=== PATIENT | female | born 1945 | race Caucasian/White ===

== ENCOUNTER → 2016-09-16 | Outpatient (CLI) | payer MEDICARE ==
[2016-09-16 11:51] LABS: EKG EKG PERFORMED
[2016-09-16 12:48] LABS: Anisocytosis Slight; CH 32.9; CHCM 35.4; HCT 42.7 % (34.0-46.0); HDW 3.14; MCH 32.9 pg (25.0-35.0); MCHC 35.2 g/dL (31.0-37.0); MCV 93.5 fL (80.0-100.0); Mean Platelet Volume 6.8; RBC 4.57 m/uL (3.80-5.40); WBC 7.2 k/uL (3.8-10.6)
[2016-09-16 12:52] LABS: INR 1.1 (<1.2)
[2016-09-16 12:53] LABS: Appearance,Urine Clear (Clear); Bilirubin,Urine Negative (Negative); Glucose,Urine (UA) Negative (Negative); Ketones,Urine Negative (Negative); Leukocyte Esterase,Urine Negative (Negative); Nitrite,Urine Negative (Negative); Protein,Urine Negative (Negative); Prothrombin Time 10.8 sec (9.0-12.0); Specific Gravity,Urine 1.021 (1.001-1.035); UA Billing (MACRO vs. MICRO) CHEM; Urobilinogen,Urine <2.0 mg/dL (<2.0)
[2016-09-16 13:03] LABS: ALT 29 U/L (9-52); AST 19 U/L (14-36); Alkaline Phosphatase 106 U/L (38-126); Anion Gap 9 mmol/L; Blood Urea Nitrogen 14 mg/dL (7-17); Calcium 9.4 mg/dL (8.4-10.2); Carbon Dioxide 27 mmol/L (22-30); Chloride 103 mmol/L (98-107); Glucose 69 mg/dL (74-99); Non-African American GFR(MDRD) >60 (>60 ml/min/1.73 sqM); Potassium 4.4 mmol/L (3.5-5.1); Sodium 139 mmol/L (137-145); Total Bilirubin 0.7 mg/dL (0.2-1.3); Total Protein 6.4 g/dL (6.3-8.2)
== END | disposition home or self-care (01) ==
LOC: LABPAT 11:35
PROVIDERS: ATTEND Orthopaedic Surgery
DX: Z01.810 Encounter for preprocedural cardiovascular examination (principal); Z79.01 Long term (current) use of anticoagulants; Z01.812 Encounter for preprocedural laboratory examination
CPT/HCPCS: 36415; 80053; 81003; 85027; 85610; 85730; 87070; 93005

== ENCOUNTER 2016-09-26 05:50 | Inpatient (IN) | payer BC, MEDICARE ==
[2016-09-19 11:28] VITALS: BMI 26.4
[~2016-09-26 05:50] MED LIST: ACETAMINOPHEN TAB 500 MG TAB PO ONE; DEXAMETHASONE SOD PHOSPHATE 10 MG/ML 1 ML VIAL IV ONE; LIDOCAINE 1% 20 ML VIAL (10MG/ML) FOR IV START INTRADERMA PRN; MELOXICAM 7.5 MG TAB PO ONE; MIDAZOLAM 2 MG/2 ML VIAL IV PRN; ONDANSETRON 4 MG/2 ML VIAL IVP ONE; SCOPOLAMINE 1.5MG/72HR PATCH TRANSDERM ONE; TRANEXAMIC ACID 1,000 MG in SODIUM CHLORIDE 0.9% 100 ML IVPB ONE; ceFAZolin 2 GM in SODIUM CHLORIDE 0.9% 100 ML IVPB ONE
[2016-09-26] MEDS ORDERED: ROPIVACAINE 246.25 MG, EPINEPHrine 0.5 MG, KETOROLAC 30 MG, cloNIDine HCL/PF 80 MCG, WA... MISCELLANE ONE ×5 (06:23)
[2016-09-26] MEDS: LACTATED RINGERS 1,000 ML IV SCH (06:52)
[2016-09-26] MEDS ORDERED: fentaNYL (PF) 50 MCG/ML 2 ML AMP ONE (07:27)
[2016-09-26] MEDS ORDERED: SODIUM CHLORIDE 0.9% 100 ML BAG ONE (07:27)
[2016-09-26] MEDS ORDERED: TRANEXAMIC ACID 1,000 MG/10 ML VIAL ONE (07:27)
[2016-09-26] MEDS ORDERED: ePHEDrine 50 MG/ML 1 ML AMP ONE (07:27)
[2016-09-26] MEDS ORDERED: SODIUM CHLORIDE 0.9% IRRIG 1,000 ML BTL IRRIGATION ONE (07:27)
[2016-09-26] MEDS ORDERED: LIDOCAINE 1% INJ 10MG/ML (20 ML MDV) ONE (07:27)
[2016-09-26] MEDS ORDERED: PHENYLEPHRINE-0.9% NACL SYG 1 MG/10 ML SYRINGE ONE (07:27)
[2016-09-26] MEDS ORDERED: HEPARIN SODIUM,PORCINE 10,000 UNIT/ML 1 ML VIAL ONE (07:27)
[2016-09-26] MEDS ORDERED: SUCCINYLCHOLINE CHLORIDE 100 MG/5 ML SYR IV ONE (07:27)
[2016-09-26] MEDS ORDERED: PROPOFOL 10 MG/ML 20 ML VIAL IV ONE (07:27)
[2016-09-26] MEDS ORDERED: MIDAZOLAM 2 MG/2 ML VIAL ONE (07:27)
[2016-09-26] MEDS ORDERED: ceFAZolin 3,000 MG in SODIUM CHLORIDE 0.9% IRRIGATIO 3,000 ML IRRIGATION ONE (07:45)
--- NOTE | 2016-09-26 09:06 | P.OP ---
Date of Procedure: 09/26/16 Preoperative Diagnosis: Severe osteoarthritis of the right hip Postoperative Diagnosis: Severe osteoarthritis of the right hip Procedure(s) Performed: Right total hip arthroplasty with a direct anterior approach Implants: Christianson [employer] nephew Polarstem size 5 standard [employer]hew R3, 3 hole acetabular shell, 48 mm [employer]hew reflection 6.5 mm cancellus screw, 20 mm 2 [employer] R3, XLPE 20 acetabular liner [employer]hew Oxinium femoral head 32 m, +0 All components were press-fit. The articulation is ceramic on polyethylene. Anesthesia: GETA Surgeon: Moo Reese Angle Shear Set Up Operator #1: Camryn Joyner Estimated Blood Loss (ml): 200 (60 mL returned with Cell Saver) Pathology: other (Femoral head) Condition: stable Disposition: PACU Indications for Procedure: After failure of conservative treatment we discussed the surgical and nonsurgical treatment options at length. Patient wishes to proceed with a total hip arthroplasty with a direct anterior approach. Complications specific to this procedure were discussed at length, including but not limited to infection, leg length discrepancy, dislocation, and nerve injury. Patient is aware of all these complications and informed consent was obtained Operative Findings: The operative findings are consistent with severe osteoarthritis of the right hip Description of Procedure: Patient was seen and evaluated in the preoperative area, consent was reviewed, and the surgical site was marked with a skin marker. Patient was then brought to the operating room and given prophylactic antibiotics intravenously. 1 g of Tranexamic acid was also given. A general anesthetic was administered by the anesthesia department. The patient was then placed on the Kasson table with the bony prominences well-padded. The hip area was then prepped and draped in usual sterile fashion. A universal timeout was then performed, which confirmed the patient's name, surgical site, ALLERGIES, and procedure being performed. Next the incision site was located at 1 cm distal and 1 cm lateral to the anterior superior iliac spine. The skin and subcutaneous tissues were sharply incised. Incision was carefully dissected down to the fascia overlying the tensor fascia nestor muscle. This fascia was then incised in line with the incision. Next, using blunt finger dissection, the tensor fascia nestor muscle was dissected off its investing fascia. The muscle was then carefully retracted laterally with a cobra retractor over the lateral neck of the femur. Next, the circumflex vessels were identified and cauterized using the AquaMantis device. The anterior hip capsule was then exposed. The capsule was then opened and an inverted T fashion. Cobra retractors were then placed intracapsularly. The proximal femur was then visualized. The femoral neck was then osteotomized appropriate level above the lesser trochanter. Small amount of traction was placed with the Kasson table. A small wedge of bone was then removed from the remaining femoral head. Next, using a corkscrew femoral head was easily removed from the acetabulum. On gross visual inspection, the femoral head had complete loss of articular cartilage in multiple periarticular osteophytes. Attention was then turned to the acetabulum. the acetabulum was exposed and any remaining labrum was excised. Sequential reaming of the acetabulum was performed using fluoroscopic guidance. When the appropriate size was reached, a trial was then placed. The position and fit of the trial was checked with fluoroscopy. The trial was then removed. Then, using fluoroscopic guidance, the final implant was impacted at 20 of anteversion and 40 of abduction, and fully seated in the acetabulum. 2 screws were then placed in the acetabulum. Again fluoroscopy was used to check position of the screws. Next, the liner was then impacted, with a 20 elevated liner located in the anterior superior quadrant. Component locking was confirmed. Attention was then directed to the femur. With the aid of the Kasson table, the femur was externally rotated to approximately 130, extended, and abducted under the opposite leg. A side hook was then placed under the proximal femur, and the side hook elevator was used to elevate the proximal femur. Retractors were then placed. A capsular release was performed, as well as a release of the conjoined tendon, which afforded excellent visualization of the proximal femur. Next, a box osteotome was used to lateralize the proximal femur. A hand filer balance wheel was then used to locate the femoral canal. Sequential broaching was then performed with appropriate size which afforded excellent fixation in the proximal femur. A trial was then placed with appropriate head and neck, and the hip was gently reduced with the aid of the Kasson table. Fluoroscopy was then used to check position of the components, as well as to ensure equal leg lengths. The hip was then gently dislocated and the trials were then removed. Final implants were then impacted and the hip was again reduced. Final fluoroscopic x-rays confirmed that the components were in anatomic position, as well as equal leg lengths. The hip was also taken through range of motion, and found to be stable. The hip was then copiously irrigated with antibiotic solution with pulsatile lavage. The hip was then irrigated with Irrisept solution. The soft tissues were then injected with a ropivacaine solution, which consisted of 246.25 mg of ropivacaine, 0.5 mg of epinephrine, 30 mg of Toradol, 80 g of clonidine, and 48.45 mL of sterile water, for a total of 100 mL of fluid injected. A second dose of 1 g of Tranexamic acid was also given. the fascia was then closed with 2-0 strata fix suture. The subcutaneous tissue was closed with 3-0 Vicryl. The subcuticular tissue was closed with 3-0 strata fix suture. The skin was then closed with Dermabond tape. The patient was then transferred to the recovery room in stable condition. The training assistant AMANDA Durant was required due to the complexity of surgery, and the need for skilled surgical endoscopist for positioning, draping, exposure, retraction, and closure of the wound.
[2016-09-26] MEDS ORDERED: HYDROmorphone 1 MG/ML 1 ML SYRINGE IVP PRN ×3 (09:30)
[2016-09-26] MEDS ORDERED: ONDANSETRON 4 MG/2 ML VIAL IVP PRN (09:30)
[2016-09-26] MEDS ORDERED: MAGNESIUM HYDROXIDE 2,400 MG/10 ML CUP PO PRN (09:30)
[2016-09-26] MEDS ORDERED: hydrOXYzine PAMOATE 25 MG CAP PO PRN (09:30)
[2016-09-26] MEDS ORDERED: traMADol 50 MG TAB PO PRN ×2 (09:30→09:35)
[2016-09-26] MEDS ORDERED: DIAZEPAM 5 MG TAB PO PRN ×2 (09:30)
[2016-09-26] MEDS ORDERED: NALOXONE 0.4 MG/ML 1 ML VIAL IV PRN (09:30)
--- NOTE | 2016-09-26 09:47 | XR ---
Right hip limited HISTORY: Hip replacement 2 intraoperative C-arm images document the procedure.
[2016-09-26] MEDS: HYDROmorphone 1 MG/ML 1 ML SYRINGE IVP PRN ×3 (09:54→10:11)
--- NOTE | 2016-09-26 10:14 | XR ---
EXAMINATION TYPE: XR Hip Limited RT DATE OF EXAM: 09/26/2016 CLINICAL HISTORY: Right hip pain and osteoarthritis status post total replacement. TECHNIQUE: Single AP portable view of right hip is obtained immediately postoperatively. COMPARISON: None. FINDINGS: Metallic hardware from total right hip arthroplasty is seen and appears satisfactory in ali gnment and position. There is evidence of recent surgery with subcutaneous gas noted laterally. IMPRESSION: Metallic hardware from total right hip arthroplasty is satisfactory in position.
[2016-09-26] MEDS: SODIUM CHLORIDE 0.9% 1,000 ML IV SCH (13:55)
[2016-09-26] MEDS ORDERED: NITROGLYCERIN SL TABS 0.4 MG TAB SUBLINGUAL PRN (14:17)
[2016-09-26] MEDS ORDERED: ALPRAZolam 0.5 MG TAB PO PRN (14:17)
[2016-09-26] MEDS ORDERED: FAMOTIDINE 20 MG TAB PO PRN (14:17)
--- NOTE | 2016-09-26 15:11 | P.CONS ---
History of Present Illness - Reason for Consult Consult date: 09/26/16 Medical management Requesting physician: Moo Reese - Chief Complaint Hip surgery - History of Present Illness This is a pleasant 70-year-old patient of Dr. Charles. Patient's undergone right total hip arthroplasty. Postprocedure sitting up on a chair comfortable. No chest pain no shortness no nausea vomiting. Just finished her lunch. Patient chronic stable medical conditions include coronary artery disease, GERD , hypertension, osteoarthritis, diverticulosis. Patient's is the bedside. Patient had a coronary bypass last year. No Rx symptoms otherwise. Past medical history: Coronary artery disease with history of bypass, GERD, hypertension, osteoarthritis, rheumatoid arthritis, non-Hodgkin's lymphoma treated previously , diverticulosis. Review of Systems GEN.: [None] EYES: [None] HEENT: [None] NECK: [None] RESPIRATORY: [None] CARDIOVASCULAR: [None] GASTROINTESTINAL: [None] GENITOURINARY: [None] MUSCULOSKELETAL: [Pain in other joints including the right knee] LYMPHATICS: [None] HEMATOLOGICAL: [None] PSYCHIATRY: [None] NEUROLOGICAL: [None] Past Medical History Past Medical History: Coronary Artery Disease (CAD), Cancer, Chest Pain / Angina , GERD/Reflux, Hypertension, Myocardial Infarction (AR), Rheumatoid Arthritis ( RA) Additional Past Medical History / Comment(s): AR X2 (1992,2011), IRREGULAR HEART BEAT., MAR 2015- H[place]INS NON LYMPHOMA (RECEIVED RITUXIN 2015), DIVERTICULOSIS., RECEIVING "CHICKEN FAT" INJECTIONS., USES CANE AND WALKER. Last Myocardial Infarction Date:: SEPTEMBER 2011 History of Any Multi-Drug Resistant Organisms: None Reported Past Surgical History: Coronary Bypass/CABG, Heart Catheterization, Heart Catheterization With Stent, Orthopedic Surgery Additional Past Surgical History / Comment(s): GERARDO CARPAL TUNNEL, GERARDO METATARSAL FOOT SURG, RIGHT BUNIONECTOMY, FX LEFT FOOT SURG., MULTIPLE HEART CATHS -STENTS X2 (1992 AND 2011), 8--15 total lt knee ., CABG - August 2015 Past Anesthesia/Blood Transfusion Reactions: No Reported Reaction Date of Last Stent Placement:: 09/2011 Past Psychological History: Anxiety Additional Psychological History / Comment(s): . Smoking Status: Former smoker Past Alcohol Use History: Daily Additional Past Alcohol Use History / Comment(s): DRINKS 1 GLASS WINE DAILY. STARTED SMOKING AT 16 YRS OLD AND QUIT 1992.SMOKED 2PPD, (SMOKED 31 YEARS) Past Drug Use History: None Reported Additional History: Drinks a glass of wine at night, smoked for 31 years 2 packs a day. In 1992. - Past Family History Mother Family Medical History: Rheumatoid Arthritis (RA) Additional Family Medical History / Comment(s): . 2014 -"old age "- RA and "4 leaky heart valves" Father Additional Family Medical History / Comment(s): dad from brain aneurysm when pt was aGE 1 Medications and Allergies Home Medications Medication Instructions Recorded Confirmed Type Aspirin EC [Ecotrin Low Dose] 81 mg PO DAILY 09/29/14 09/26/16 History Carvedilol [Coreg] 25 mg PO BID 09/29/14 09/26/16 History Nitroglycerin Sl Tabs [Nitrostat] 0.4 mg SUBLINGUAL Q5M PRN 09/29/14 09/26/16 History Ranitidine HCl [Zantac] 150 mg PO BID PRN 09/29/14 09/26/16 History traMADol HCl [Ultram] 100 mg PO Q6HR PRN 09/29/14 09/26/16 History ALPRAZolam [Xanax] 0.5 mg PO BID PRN 09/19/16 09/26/16 History Fish Oil/Dha/Epa [Fish Oil 1,200 1 cap PO BID 09/19/16 09/26/16 History mg Fish Oil] Polyethylene Glycol 3350 [Miralax] 17 gm PO DAILY 09/19/16 09/26/16 History Pravastatin Sodium [Pravachol] 40 mg PO HS 09/19/16 09/26/16 History Allergies Allergy/AdvReac Type Severity Reaction Status Date / Time codeine Allergy Unknown Passed Out Verified 09/26/16 06:23 niacin Allergy Unknown Tingling Verified 09/26/16 06:23 [From Niaspan of lips Extended-Release] and face. Sulfa (Sulfonamide Allergy Unknown Swelling Verified 09/26/16 06:23 Antibiotics) of Throat acetaminophen [From [place]] Allergy Hallucinati Verified 09/26/16 06:23 ons hydrocodone [From [place]] Allergy Hallucinati Verified 09/26/16 06:23 ons leflunomide [From Arava] Allergy Hallucinati Verified 09/26/16 06:23 ons prednisone Allergy Hallucinati Verified 09/26/16 06:23 ons Physical Exam Vitals: Vital Signs Temp Pulse Pulse Resp BP BP Pulse Ox 09/26/16 14:28 97.6 F 70 18 116/76 98 09/26/16 12:45 65 111/72 09/26/16 12:30 62 134/72 09/26/16 12:15 68 131/73 09/26/16 12:00 66 111/72 09/26/16 11:45 66 134/73 09/26/16 11:30 64 131/73 09/26/16 11:15 67 140/70 09/26/16 11:00 68 157/81 09/26/16 10:45 97.1 F L 80 17 150/77 97 09/26/16 10:17 80 18 137/63 100 09/26/16 10:01 67 16 153/78 100 09/26/16 09:47 80 18 157/74 100 09/26/16 09:32 97.2 F L 69 16 151/72 94 L 09/26/16 06:30 97.4 F L 59 L 16 176/77 95 Intake and Output Patient Weight 09/27/16 06:59 Weight 67.585 kg VITAL SIGNS: [Reviewed. BMI noted] GENERAL: [Average built, sitting up on chair, comfortable]. EYES: [Pupils equal. Conjunctiva john]l. HEENT: [External appearance of nose and ears normal, oral cavity grossly normal] . NECK: [JVD not raised; masses not palpable]. HEART: [First and second heart sounds are normal; no edema]. LUNGS:[ Respiratory rate normal; clear to auscultation]. ABDOMEN: [Soft, nontender, liver spleen not palpable, no masses palpable]. LYMPHATICS: [No lymph nodes palpable in the axilla and neck]. PSYCH: [Alert and oriented x3; mood and affect john]l. NEUROLOGICAL: [Cranial nerves grossly intact; no facial asymmetry, power and sensation grossly intact] MUSCULOSKELETAL: Dressing over the right hip site, evidence of osteoarthritis especially in the hands and right knee. Results Results: No current labs Labs from 09/16/16 showed a hemoglobin of 15 with impression of 4.4 BUN/ creatinine to be normal Assessment and Plan Plan: Assessment: -Right total hip arthroplasty -Coronary artery disease with a prior history of CABG -GERD -Essential hypertension -Bilateral chronic rheumatoid arthritis -Chronic colonic diverticulosis -Primary osteoarthritis of multiple joints including the right knee Plan: Home medications are to be resumed. Care was discussed with the patient has been at the bedside. Patient is on aspirin 325 mg twice a day per Dr. Reese. Will follow the patient closely. Thank you Dr. Reese follow the patient with you.
[2016-09-26] MEDS: ceFAZolin 2 GM in SODIUM CHLORIDE 0.9% 100 ML IVPB SCH (16:27)
[2016-09-26] MEDS ORDERED: CARVEDILOL 12.5 MG TAB PO SCH (17:30)
[2016-09-26 19:47] VITALS: RESP 16
[2016-09-26] MEDS: traMADol 50 MG TAB PO PRN (20:43)
[2016-09-26] MEDS: ASPIRIN 325 MG TAB PO SCH (20:44)
[2016-09-26] MEDS: CARVEDILOL 12.5 MG TAB PO SCH (20:45)
[2016-09-26] MEDS ORDERED: SENNOSIDES-DOCUSATE SODIUM 1 EACH TAB PO SCH (21:00)
[2016-09-26] MEDS ORDERED: PRAVASTATIN SODIUM 40 MG TAB PO SCH (21:00)
[2016-09-27] MEDS: ceFAZolin 2 GM in SODIUM CHLORIDE 0.9% 100 ML IVPB SCH (00:10)
[2016-09-27] MEDS: traMADol 50 MG TAB PO PRN ×2 (02:11→08:18)
[2016-09-27] MEDS: SODIUM CHLORIDE 0.9% 1,000 ML IV SCH (03:16)
[2016-09-27] MEDS: LACTATED RINGERS 1,000 ML IV SCH (04:52)
[2016-09-27 07:35] VITALS: BP 142/66; PULSE 73; TEMP 97.2
[2016-09-27 07:45] LABS: Basophils % (A) 0 %; CH 32.3; CHCM 34.6; Eosinophils % (A) 0 %; HCT 31.6 % (34.0-46.0); HDW 3.22; Luc # (Auto) 0.18; Luc % (Auto) 2; Lymphocytes % (A) 12 %; MCH 31.9 pg (25.0-35.0); MCHC 33.9 g/dL (31.0-37.0); MCV 94.1 fL (80.0-100.0); Mean Platelet Volume 6.7; Monocytes # (A) 0.8 k/uL (0-1.0); Monocytes % (A) 9 %; Neutrophils # (A) 6.9 k/uL (1.3-7.7); Neutrophils % (A) 77 %; RBC 3.36 m/uL (3.80-5.40); RDW 15.3 % (11.5-15.5); WBC 8.9 k/uL (3.8-10.6); WBC (Perox) 9.45
[2016-09-27 07:50] LABS: HGB 10.7 gm/dL (11.4-16.0)
[2016-09-27] MEDS: ASPIRIN 325 MG TAB PO SCH (08:18)
[2016-09-27] MEDS: CARVEDILOL 12.5 MG TAB PO SCH (08:19)
[2016-09-27] MEDS ORDERED: POLYETHYLENE GLYCOL 3350 17 GM POWD.PACK PO SCH (09:00)
[2016-09-27] MEDS ORDERED: MELOXICAM 7.5 MG TAB PO SCH (09:00)
--- NOTE | 2016-09-27 10:04 | P.DS ---
Providers Date of admission: 09/26/16 05:50 Expected date of discharge: 09/27/16 Attending physician: Moo Reese Consults: 09/26/16 09:30 Consult Physician Routine Consulting Provider: Kenn Morrison Consult Reason/Comments: medical management Do you want consulting provider notified?: Yes Primary care physician: [facility] Course: This is a 70-year-old female with known history of degenerative arthritis of the right hip. The patient presents for evaluation. After discussion and consideration patient elects to proceed with total hip arthroplasty. The patient is seen preoperatively by Dr. Reese and cleared for surgery. Patient is admitted to [facility] on 09/26/2016 for total hip arthroplasty. The procedures performed without complication or sequelae. The patient is doing well postoperatively. Labs and vital signs are stable on day of discharge. On day of discharge patient's hip incision is healing well. There is minimal erythema. There is no drainage noted at this time. There is minimal soft tissue swelling to the hip and thigh. Patient has full foot and ankle motion without difficulty or pain. Neurovascular status to the right lower extremity is intact. Patient is discharged home in good condition.Please see med rec for accurate list of home medications. Plan - Discharge Summary New Discharge Prescriptions: New Aspirin 325 mg PO BID #60 tab Sennosides-Docusate Sodium [Senokot-S] 1 tab PO BID #60 tablet traMADol HCl [Ultram] 1 - 2 tab PO Q6H PRN #90 tab PRN Reason: Pain No Action traMADol HCl [Ultram] 100 mg PO Q6HR PRN PRN Reason: Pain Ranitidine HCl [Zantac] 150 mg PO BID PRN PRN Reason: Heartburn Nitroglycerin Sl Tabs [Nitrostat] 0.4 mg SUBLINGUAL Q5M PRN PRN Reason: Chest Pain Carvedilol [Coreg] 25 mg PO BID Aspirin EC [Ecotrin Low Dose] 81 mg PO DAILY Pravastatin Sodium [Pravachol] 40 mg PO HS Fish Oil/Dha/Epa [Fish Oil 1,200 mg Fish Oil] 1 cap PO BID Polyethylene Glycol 3350 [Miralax] 17 gm PO DAILY ALPRAZolam [Xanax] 0.5 mg PO BID PRN PRN Reason: Anxiety Discharge Medication List Aspirin EC [Ecotrin Low Dose] 81 mg PO DAILY 09/29/14 [History] Carvedilol [Coreg] 25 mg PO BID 09/29/14 [History] Nitroglycerin Sl Tabs [Nitrostat] 0.4 mg SUBLINGUAL Q5M PRN 09/29/14 [History] Ranitidine HCl [Zantac] 150 mg PO BID PRN 09/29/14 [History] traMADol HCl [Ultram] 100 mg PO Q6HR PRN 09/29/14 [History] ALPRAZolam [Xanax] 0.5 mg PO BID PRN 09/19/16 [History] Fish Oil/Dha/Epa [Fish Oil 1,200 mg Fish Oil] 1 cap PO BID 09/19/16 [History] Polyethylene Glycol 3350 [Miralax] 17 gm PO DAILY 09/19/16 [History] Pravastatin Sodium [Pravachol] 40 mg PO HS 09/19/16 [History] Aspirin 325 mg PO BID #60 tab 09/27/16 [Rx] Sennosides-Docusate Sodium [Senokot-S] 1 tab PO BID #60 tablet 09/27/16 [Rx] traMADol HCl [Ultram] 1 - 2 tab PO Q6H PRN #90 tab 09/27/16 [Rx] Follow up Appointment(s)/Referral(s): Moo Reese DO [Doctor of Osteopathic Medicine] - 2 Weeks Activity/Diet/Wound Care/Special Instructions: Weightbearing as tolerated with walker May shower after 2 days if no drainage from the incision Follow-up with [facility] in 2 weeks with any questions or concerns Discharge Disposition: HOME WITH HOME HEALTH SERVICES
--- NOTE | 2016-09-27 13:33 | P.PN ---
Progress Note - Text Date of service: 09/27/2016 Presenting complaint: Right hip surgery Interval history: This is a patient status post right hip surgery. Patient's controlled. No chest pain or shortness of breath. Did tolerate her diet. Did work with therapy. Feeling well. Review of systems: Was done for constitutional, cardiovascular, GI, pulmonary. Musculoskeletal, relevant finding as above Current medications are reviewed On examination VITAL SIGNS: [97.2, 73, 16, 142/66, pulse ox 100% room air] GENERAL: [ sitting up on chair, comfortable]. EYES: [Pupils equal. Conjunctiva john]l. NECK: [JVD not raised; masses not palpable]. HEART: [First and second heart sounds are normal; no edema]. LUNGS:[ Respiratory rate normal; clear to auscultation]. ABDOMEN: [Soft, nontender, liver spleen not palpable, no masses palpable]. PSYCH: [Alert and oriented x3; mood and affect john]l. MUSCULOSKELETAL: Dressing over the right hip site, evidence of osteoarthritis especially in the hands and right knee. Labs: 10.7 Assessment: -Right total hip arthroplasty -Coronary artery disease with a prior history of CABG -GERD -Essential hypertension -Bilateral chronic rheumatoid arthritis -Chronic colonic diverticulosis -Primary osteoarthritis of multiple joints including the right knee -Acute blood loss anemia as expected from surgery Plan: Continue current medication treatment plan. Care was discussed with the patient. Follow-up with family doctor next week. Anticoagulation per Dr. Reese. Thank you Dr. Reese
== END 2016-09-27 11:12 | disposition home health service (06) | DRG 470 ==
LOC: 2ORMAIN 05:50 → 3SUR 09:27
PROVIDERS: ADMIT Orthopaedic Surgery; ATTEND Orthopaedic Surgery
PROC: 0SR904A Replacement of Right Hip Joint with Ceramic on Polyethylene Synthetic Substitute, Uncemented, Open Approach (ICD-10-PCS; principal; 2016-09-26 07:30)
DX: M16.11 Unilateral primary osteoarthritis, right hip (principal); M06.9 Rheumatoid arthritis, unspecified; D62 Acute posthemorrhagic anemia; I10 Essential (primary) hypertension; K57.30 Diverticulosis of large intestine without perforation or abscess without bleeding; I25.10 Atherosclerotic heart disease of native coronary artery without angina pectoris; K21.9 Gastro-esophageal reflux disease without esophagitis; Z88.2 Allergy status to sulfonamides; Z79.82 Long term (current) use of aspirin; Z79.899 Other long term (current) drug therapy; Z88.5 Allergy status to narcotic agent; Z95.5 Presence of coronary angioplasty implant and graft; Z95.1 Presence of aortocoronary bypass graft; Z87.891 Personal history of nicotine dependence; I25.2 Old myocardial infarction; Z85.72 Personal history of non-Hodgkin lymphomas
CPT/HCPCS: 73501; 85025; 86850; 86900; 86901; 88300

== ENCOUNTER → 2017-08-04 | Outpatient (CLI) | payer MEDICARE ==
[2017-08-04 12:41] LABS: HCT 45.6 % (34.0-46.0); HGB 16.3 gm/dL (11.4-16.0); MCH 32.9 pg (25.0-35.0); MCHC 35.7 g/dL (31.0-37.0); MCV 92.4 fL (80.0-100.0); Mean Platelet Volume 6.5; Platelet Count 244 k/uL (150-450); RBC 4.94 m/uL (3.80-5.40); RDW 13.3 % (11.5-15.5); WBC 5.9 k/uL (3.8-10.6)
[2017-08-04 12:46] LABS: INR 1.1 (<1.2); Partial Thromboplastin Time 23.9 sec (22.0-30.0); Prothrombin Time 10.7 sec (9.0-12.0)
[2017-08-04 12:54] LABS: ALT 32 U/L (9-52); AST 22 U/L (14-36); Albumin 4.1 g/dL (3.5-5.0); Alkaline Phosphatase 78 U/L (38-126); Anion Gap 12 mmol/L; Blood Urea Nitrogen 16 mg/dL (7-17); Calcium 9.6 mg/dL (8.4-10.2); Carbon Dioxide 25 mmol/L (22-30); Chloride 106 mmol/L (98-107); Glucose 73 mg/dL (74-99); Potassium 4.4 mmol/L (3.5-5.1); Sodium 143 mmol/L (137-145); Total Bilirubin 0.5 mg/dL (0.2-1.3); Total Protein 6.2 g/dL (6.3-8.2)
[2017-08-04 12:55] LABS: Appearance,Urine Clear (Clear); Bilirubin,Urine Negative (Negative); Blood,Urine Negative (Negative); Color,Urine Light Yellow; Glucose,Urine (UA) Negative (Negative); Ketones,Urine Negative (Negative); Leukocyte Esterase,Urine Negative (Negative); Nitrite,Urine Negative (Negative); PH, Urine 6.5 (5.0-8.0); Protein,Urine Negative (Negative); Specific Gravity,Urine 1.004 (1.001-1.035); Urobilinogen,Urine <2.0 mg/dL (<2.0)
== END | disposition home or self-care (01) ==
LOC: LABPAT 11:59
PROVIDERS: ATTEND Orthopaedic Surgery
DX: Z01.812 Encounter for preprocedural laboratory examination (principal); Z51.81 Encounter for therapeutic drug level monitoring; Z79.01 Long term (current) use of anticoagulants
CPT/HCPCS: 36415; 80053; 81003; 85027; 85610; 85730; 87070

== ENCOUNTER 2017-08-15 07:30 | Inpatient (IN) | payer MEDICARE ==
[2017-08-07 16:10] VITALS: BMI 31.8
[~2017-08-15 07:30] MED LIST changes: -DEXAMETHASONE SOD PHOSPHATE 10 MG/ML 1 ML VIAL IV ONE; -MELOXICAM 7.5 MG TAB PO ONE; -ONDANSETRON 4 MG/2 ML VIAL IVP ONE; +ROPIVACAINE 246.25 MG, EPINEPHrine 0.5 MG, KETOROLAC 30 MG, cloNIDine HCL/PF 80 MCG, WA... MISCELLANE ONE; -TRANEXAMIC ACID 1,000 MG in SODIUM CHLORIDE 0.9% 100 ML IVPB ONE; +TRANEXAMIC ACID 1,000 MG in SODIUM CHLORIDE 0.9% 50 ML IVPB ONE; -ceFAZolin 2 GM in SODIUM CHLORIDE 0.9% 100 ML IVPB ONE; +ceFAZolin IN SWFI 2 GM/20 ML SYRINGE IVP ONE; +fentaNYL (PF) 50 MCG/ML 2 ML AMP IV PRN
[2017-08-15] MEDS: MELOXICAM 7.5 MG TAB PO ONE ×2 (08:13→12:15)
[2017-08-15] MEDS: LACTATED RINGERS 1,000 ML IV SCH ×2 (08:21→13:52)
[2017-08-15] MEDS: DEXAMETHASONE SOD PHOSPHATE 10 MG/ML 1 ML VIAL IV ONE ×2 (08:30→12:14)
[2017-08-15] MEDS ORDERED: HYDROmorphone 0.5 MG/0.5 ML SYRINGE IVP PRN ×3 (09:26)
[2017-08-15] MEDS ORDERED: hydrOXYzine PAMOATE 25 MG CAP PO PRN (09:26)
[2017-08-15] MEDS ORDERED: HYDROcodone/APAP 5-325MG 1 EACH TAB PO PRN ×2 (09:26)
[2017-08-15] MEDS ORDERED: ONDANSETRON 4 MG/2 ML VIAL IVP PRN (09:26)
[2017-08-15] MEDS ORDERED: NALOXONE 0.4 MG/ML 1 ML VIAL IV PRN (09:26)
[2017-08-15] MEDS ORDERED: MAGNESIUM HYDROXIDE 2,400 MG/10 ML CUP PO PRN (09:26)
[2017-08-15] MEDS ORDERED: DIAZEPAM 5 MG TAB PO PRN ×2 (09:26)
[2017-08-15] MEDS ORDERED: TRANEXAMIC ACID 1,000 MG/10 ML VIAL ONE (09:28)
[2017-08-15] MEDS ORDERED: ROCURONIUM BROMIDE 10 MG/ML 10 ML VIAL IV ONE (09:28)
[2017-08-15] MEDS ORDERED: SUCCINYLCHOLINE CHLORIDE 100 MG/5 ML SYR IV ONE (09:28)
[2017-08-15] MEDS ORDERED: LIDOCAINE 1% INJ 10MG/ML (20 ML MDV) ONE (09:28)
[2017-08-15] MEDS ORDERED: LACTATED RINGERS 1,000 ML BAG IV ONE (09:28)
[2017-08-15] MEDS ORDERED: PHENYLEPHRINE-0.9% NACL SYG 1 MG/10 ML SYRINGE ONE (09:28)
[2017-08-15] MEDS ORDERED: MIDAZOLAM 2 MG/2 ML VIAL ONE (09:28)
[2017-08-15] MEDS ORDERED: NEOSTIGMINE 1 MG/ML 10 ML VIAL ONE (09:28)
[2017-08-15] MEDS ORDERED: GLYCOPYRROLATE 0.2 MG/ML 2 ML VIAL ONE (09:28)
[2017-08-15] MEDS ORDERED: fentaNYL (PF) 50 MCG/ML 2 ML AMP ONE (09:28)
[2017-08-15] MEDS ORDERED: SODIUM CHLORIDE 0.9% 100 ML BAG ONE (09:28)
[2017-08-15] MEDS ORDERED: HEPARIN SODIUM,PORCINE 10,000 UNIT/ML 1 ML VIAL ONE (09:28)
[2017-08-15] MEDS ORDERED: PROPOFOL 10 MG/ML 20 ML VIAL IV ONE (09:28)
[2017-08-15] MEDS ORDERED: ceFAZolin 3,000 MG in SODIUM CHLORIDE 0.9% IRRIGATIO 3,000 ML IRRIGATION ONE (10:04)
--- NOTE | 2017-08-15 11:08 | FL ---
EXAMINATION TYPE: FL guidance operating room DATE OF EXAM: 08/15/2017 HISTORY: Flouroscopy time Less than 60 seconds of fluoroscopy provided. IMPRESSION: 1. Fluoroscopy time.
--- NOTE | 2017-08-15 11:13 | XR ---
EXAMINATION TYPE: XR Hip Limited LT DATE OF EXAM: 08/15/2017 COMPARISON: NONE HISTORY: Postop TECHNIQUE: One view submitted. FINDINGS: There is postsurgical change in near anatomic alignment. There is soft tissue edema and emphysema. IMPRESSION: 1. Postoperative change. Appears in near-anatomic alignment.
[2017-08-15] MEDS ORDERED: LACTATED RINGERS 1,000 ML IV ONE ×2 (11:21)
--- NOTE | 2017-08-15 11:51 | XR ---
EXAMINATION TYPE: XR Hip Limited LT DATE OF EXAM: 08/15/2017 CLINICAL HISTORY: Left hip pain and osteoarthritis. TECHNIQUE: Single AP portable view of left hip is obtained immediately postoperatively. COMPARISON: None. FINDINGS: Metallic hardware from left hip arthroplasty is seen and appears satisfactory in alignment and position. There is evidence of recent surgery with subcutaneous gas noted laterally. IMPRESSION: Metallic hardware from left hip arthroplasty is satisfactory in position.
[2017-08-15 12:18] VITALS: RESP 16
--- NOTE | 2017-08-15 12:20 | P.OP ---
Date of Procedure: 08/15/17 Preoperative Diagnosis: Severe osteoarthritis left hip Postoperative Diagnosis: Severe osteoarthritis left hip Procedure(s) Performed: Left total hip arthroplasty with a direct anterior approach Implants: Christianson and nephew Polarstem size 6 standard [employer]on [employer]hew R3, 3 hole acetabular shell, 52 mm [employer]hew reflection 6.5 mm cancellus screw, 20 mm 2 [employer]hew R3, XLPE 20 acetabular liner [employer]hew Oxinium femoral head 36 m, +0 All components were press-fit. The articulation is Oxinium on polyethylene. Anesthesia: GETA Surgeon: Moo Reese Epidemiologist #1: Camryn Joyner Estimated Blood Loss (ml): 400 (203 mL returned with Cell Saver) Pathology: other (Femoral head) Condition: stable Disposition: PACU Indications for Procedure: After failure of conservative treatment we discussed the surgical and nonsurgical treatment options at length. Patient wishes to proceed with a total hip arthroplasty with a direct anterior approach. Complications specific to this procedure were discussed at length, including but not limited to infection, leg length discrepancy, dislocation, and nerve injury. Patient is aware of all these complications and informed consent was obtained Operative Findings: The operative findings are consistent with severe osteoarthritis of the left hip Description of Procedure: Patient was seen and evaluated in the preoperative area, consent was reviewed, and the surgical site was marked with a skin marker. Patient was then brought to the operating room and given prophylactic antibiotics intravenously. 1 g of Tranexamic acid was also given. A general anesthetic was administered by the anesthesia department. The patient was then placed on the Mayetta table with the bony prominences well-padded. The hip area was then prepped and draped in usual sterile fashion. A universal timeout was then performed, which confirmed the patient's name, surgical site, ALLERGIES, and procedure being performed. Next the incision site was located at 1 cm distal and 1 cm lateral to the anterior superior iliac spine. The skin and subcutaneous tissues were sharply incised. Incision was carefully dissected down to the fascia overlying the tensor fascia nestor muscle. This fascia was then incised in line with the incision. Next, using blunt finger dissection, the tensor fascia nestor muscle was dissected off its investing fascia. The muscle was then carefully retracted laterally with a cobra retractor over the lateral neck of the femur. Next, the circumflex vessels were identified and cauterized using the AquaMantis device. The anterior hip capsule was then exposed. The capsule was then opened and an inverted T fashion. Cobra retractors were then placed intracapsularly. The proximal femur was then visualized. The femoral neck was then osteotomized appropriate level above the lesser trochanter. Small amount of traction was placed with the Mayetta table. A small wedge of bone was then removed from the remaining femoral head. Next, using a corkscrew femoral head was easily removed from the acetabulum. On gross visual inspection, the femoral head had complete loss of articular cartilage in multiple periarticular osteophytes. Attention was then turned to the acetabulum. the acetabulum was exposed and any remaining labrum was excised. Sequential reaming of the acetabulum was performed using fluoroscopic guidance. When the appropriate size was reached, a trial was then placed. The position and fit of the trial was checked with fluoroscopy. The trial was then removed. Then, using fluoroscopic guidance, the final implant was impacted at 20 of anteversion and 40 of abduction, and fully seated in the acetabulum. 2 screws were then placed in the acetabulum. Again fluoroscopy was used to check position of the screws. Next, the liner was then impacted, with a 20 elevated liner located in the anterior superior quadrant. Component locking was confirmed. Attention was then directed to the femur. With the aid of the Mayetta table, the femur was externally rotated to approximately 130, extended, and abducted under the opposite leg. A side hook was then placed under the proximal femur, and the side hook elevator was used to elevate the proximal femur. Retractors were then placed. A capsular release was performed, as well as a release of the conjoined tendon, which afforded excellent visualization of the proximal femur. Next, a box osteotome was used to lateralize the proximal femur. A hand carver was then used to locate the femoral canal. Sequential broaching was then performed with appropriate size which afforded excellent fixation in the proximal femur. A trial was then placed with appropriate head and neck, and the hip was gently reduced with the aid of the Mayetta table. Fluoroscopy was then used to check position of the components, as well as to ensure equal leg lengths. The hip was then gently dislocated and the trials were then removed. Final implants were then impacted and the hip was again reduced. Final fluoroscopic x-rays confirmed that the components were in anatomic position, as well as equal leg lengths. The hip was also taken through range of motion, and found to be stable. The hip was then copiously irrigated with antibiotic solution with pulsatile lavage. The hip was then irrigated with Irrisept solution. The soft tissues were then injected with a ropivacaine solution, which consisted of 246.25 mg of ropivacaine, 0.5 mg of epinephrine, 30 mg of Toradol, 80 g of clonidine, and 48.45 mL of sterile water, for a total of 100 mL of fluid injected. A second dose of 1 g of Tranexamic acid was also given. the fascia was then closed with 2-0 strata fix suture. The subcutaneous tissue was closed with 3-0 Vicryl. The subcuticular tissue was closed with 3-0 strata fix suture. The skin was then closed with Dermabond glue and a sterile silver dressing. The patient was then transferred to the recovery room in stable condition. The clothing sales assistant AMANDA Durant was required due to the complexity of surgery, and the need for skilled surgical services coordinator for positioning, draping, exposure, retraction, and closure of the wound.
[2017-08-15] MEDS: SODIUM CHLORIDE 0.9% 1,000 ML IV SCH (12:53)
[2017-08-15] MEDS ORDERED: traMADol 50 MG TAB PO PRN (13:15)
[2017-08-15] MEDS ORDERED: NITROGLYCERIN SL TABS 0.4 MG TAB SUBLINGUAL PRN (13:37)
[2017-08-15] MEDS ORDERED: ALPRAZolam 0.5 MG TAB PO PRN (13:37)
[2017-08-15] MEDS: traMADol 50 MG TAB PO PRN (14:01)
--- NOTE | 2017-08-15 14:16 | P.CONS ---
History of Present Illness - Reason for Consult Recommendations regarding antihypertensive medications - History of Present Illness 70-year-old pleasant female underwent left hip arthroplasty, does have history of coronary disease in the past. With comparing of pain in the left hip area patient blood pressure is elevated because of the pain I believe. Patient denied any fever chills nausea vomiting did not pass gas yet. Patient doesn't have a Garrett catheter of a surgical drain in place. Review of Systems REVIEW OF SYSTEMS: CONSTITUTIONAL: No fever, no malaise, no fatigue. HEENT: No recent visual problems or hearing problems. Denied any sore throat. CARDIOVASCULAR: No chest pain, orthopnea, PND, no palpitations, no syncope. PULMONARY: No shortness of breath, no cough, no hemoptysis. GASTROINTESTINAL: No diarrhea, no nausea, no vomiting, no abdominal pain. Normoactive bowel sounds. NEUROLOGICAL: No headaches, no weakness, no numbness. HEMATOLOGICAL: Denies any bleeding or petechiae. GENITOURINARY: Denies any burning micturition, frequency, or urgency. MUSCULOSKELETAL/RHEUMATOLOGICAL: As mentioned in HPI ENDOCRINE: Denies any polyuria or polydipsia. The rest of the 14-point review of systems is negative. Past Medical History Past Medical History: Coronary Artery Disease (CAD), Cancer, GERD/Reflux, Hyperlipidemia, Hypertension, Myocardial Infarction ([place]), Rheumatoid Arthritis ( RA) Additional Past Medical History / Comment(s): [place] X2 (1992,2011), IRREGULAR HEART BEAT., MAR 2015- [place] NON LYMPHOMA (RECEIVED RITUXIN 2015), DIVERTICULOSIS., USES CANE AND WALKER. Last Myocardial Infarction Date:: SEPTEMBER 2011 History of Any Multi-Drug Resistant Organisms: None Reported Past Surgical History: Coronary Bypass/CABG, Heart Catheterization, Heart Catheterization With Stent, Joint Replacement, Orthopedic Surgery Additional Past Surgical History / Comment(s): GERARDO CARPAL TUNNEL, GERARDO METATARSAL FOOT SURG, RIGHT BUNIONECTOMY, FX LEFT FOOT SURG., MULTIPLE HEART CATHS -STENTS X2 (1992 AND 2011), 8--15 total lt knee ., triple bypass August 2015 Past Anesthesia/Blood Transfusion Reactions: No Reported Reaction Date of Last Stent Placement:: 09/2011 Past Psychological History: Anxiety Additional Psychological History / Comment(s): . Smoking Status: Former smoker Past Alcohol Use History: Daily Additional Past Alcohol Use History / Comment(s): DRINKS 1 GLASS WINE DAILY. STARTED SMOKING AT 16 YRS OLD AND QUIT 1992.SMOKED 2PPD, (SMOKED 31 YEARS) Past Drug Use History: None Reported - Past Family History Mother Family Medical History: Rheumatoid Arthritis (RA) Additional Family Medical History / Comment(s): . 2014 -"old age "- RA and "4 leaky heart valves" Father Additional Family Medical History / Comment(s): dad from brain aneurysm when pt was aGE 1 Medications and Allergies Home Medications Medication Instructions Recorded Confirmed Type Aspirin EC [Ecotrin Low Dose] 81 mg PO DAILY 09/29/14 08/15/17 History Carvedilol [Coreg] 25 mg PO BID 09/29/14 08/15/17 History Nitroglycerin Sl Tabs [Nitrostat] 0.4 mg SUBLINGUAL Q5M PRN 09/29/14 08/15/17 History ALPRAZolam [Xanax] 0.5 mg PO BID PRN 09/19/16 08/15/17 History Fish Oil/Dha/Epa [Fish Oil 1,200 1 cap PO BID 09/19/16 08/15/17 History mg Fish Oil] Polyethylene Glycol 3350 [Miralax] 17 gm PO Q48H 09/19/16 08/15/17 History Pravastatin Sodium [Pravachol] 40 mg PO HS 09/19/16 08/15/17 History Omeprazole [PriLOSEC] 20 mg PO DAILY 08/07/17 08/15/17 History traMADol HCl [Ultram] 50 - 100 mg PO Q6H PRN 08/07/17 08/15/17 History Allergies Allergy/AdvReac Type Severity Reaction Status Date / Time codeine Allergy Unknown Passed Out Verified 08/15/17 10:12 niacin Allergy Unknown Tingling Verified 08/15/17 10:12 [From Niaspan of lips Extended-Release] and face. Sulfa (Sulfonamide Allergy Unknown Swelling Verified 08/15/17 10:12 Antibiotics) of Throat hydrocodone [From Rogers] Allergy Hallucinati Verified 08/15/17 10:12 ons leflunomide [From Arava] Allergy Hallucinati Verified 08/15/17 10:12 ons prednisone Allergy Hallucinati Verified 08/15/17 10:12 ons cloth tape AdvReac red Uncoded 08/15/17 07:56 irritated skin Physical Exam Vitals: Vital Signs Temp Pulse Pulse Resp BP BP Pulse Ox 08/15/17 12:06 61 16 161/77 96 08/15/17 11:51 55 L 14 167/77 100 08/15/17 11:36 63 16 168/77 100 08/15/17 11:21 97.1 F L 67 16 169/74 94 L 08/15/17 07:59 97.6 F 65 18 177/84 94 L Intake and Output 08/14/17 08/15/17 08/15/17 22:59 06:59 14:59 Intake Total 1201 Output Total 400 Balance 801 Intake: IV 1201 Output: Estimated Blood Loss 400 Other: Weight 81.647 kg PHYSICAL EXAMINATION: GENERAL: The patient is alert and oriented x3, not in any acute distress. Well developed, well nourished. HEENT: Pupils are round and equally reacting to light. EOMI. No scleral icterus. No conjunctival pallor. Normocephalic, atraumatic. No pharyngeal erythema. No thyromegaly. CARDIOVASCULAR: S1 and S2 present. No murmurs, rubs, or gallops. PULMONARY: Chest is clear to auscultation, no wheezing or crackles. ABDOMEN: Soft, nontender, nondistended, normoactive bowel sounds. No palpable organomegaly. MUSCULOSKELETAL: Deferred to orthopedic surgery EXTREMITIES: No cyanosis, clubbing, or pedal edema. NEUROLOGICAL: Gross neurological examination did not reveal any focal deficits. SKIN: No rashes. Assessment and Plan Plan: -Coronary artery disease: Patient will be resumed on beta blockers and antiplatelet therapy. -Hypertension patient blood pressure is bit elevated because of her pain we'll treat the pain. Resume her antidepressant medications -Gastroesophageal reflux disease -Hyperlipidemia -Rheumatoid arthritis -Left hip arthroplasty pain management and DVT prophylaxis as per primary service. Thank you for letting report is pending this patient's care will can you to follow on as-needed basis.
[2017-08-15] MEDS: CARVEDILOL 12.5 MG TAB PO SCH (16:54)
[2017-08-15] MEDS: ceFAZolin IN SWFI 2 GM/20 ML SYRINGE IVP SCH (16:54)
[2017-08-15] MEDS ORDERED: PRAVASTATIN SODIUM 40 MG TAB PO SCH (21:00)
[2017-08-15] MEDS ORDERED: SENNOSIDES-DOCUSATE SODIUM 1 EACH TAB PO SCH (21:00)
[2017-08-15] MEDS: ASPIRIN 325 MG TAB PO SCH (21:48)
[2017-08-16] MEDS: traMADol 50 MG TAB PO PRN (00:07)
[2017-08-16] MEDS: ceFAZolin IN SWFI 2 GM/20 ML SYRINGE IVP SCH (02:08)
[2017-08-16] MEDS: SODIUM CHLORIDE 0.9% 1,000 ML IV SCH (04:36)
[2017-08-16 07:11] LABS: Basophils % (A) 0 %; Eosinophils % (A) 0 %; HCT 39.8 % (34.0-46.0); HGB 13.8 gm/dL (11.4-16.0); Lymphocytes # (A) 1.3 k/uL (1.0-4.8); Lymphocytes % (A) 8 %; MCH 31.9 pg (25.0-35.0); MCHC 34.7 g/dL (31.0-37.0); MCV 91.8 fL (80.0-100.0); Mean Platelet Volume 6.8; Monocytes # (A) 1.3 k/uL (0-1.0); Monocytes % (A) 8 %; Neutrophils # (A) 12.7 k/uL (1.3-7.7); Neutrophils % (A) 82 %; Platelet Count 231 k/uL (150-450); RBC 4.33 m/uL (3.80-5.40); RDW 13.1 % (11.5-15.5); WBC 15.5 k/uL (3.8-10.6)
[2017-08-16 07:15] VITALS: BP 145/81; PULSE 73; TEMP 97.4
[2017-08-16] MEDS ORDERED: PANTOPRAZOLE 40 MG TABLET PO SCH (07:30)
[2017-08-16] MEDS: CARVEDILOL 12.5 MG TAB PO SCH (07:41)
[2017-08-16] MEDS: ASPIRIN 325 MG TAB PO SCH (07:41)
--- NOTE | 2017-08-16 08:44 | P.DS ---
Providers Date of admission: 08/15/17 07:30 Expected date of discharge: 08/16/17 Attending physician: Moo Reese Consults: 08/15/17 09:26 Consult Physician Routine Consulting Provider: Bakari Meier Consult Reason/Comments: medical management Do you want consulting provider notified?: Yes 08/15/17 12:39 Consult Physician Routine Consulting Provider: Jaquan Yeung Consult Reason/Comments: medical management Do you want consulting provider notified?: Yes Primary care physician: Bakari Meier - Discharge Diagnosis(es) (1) Primary osteoarthritis of left hip Current Visit: Yes Status: Acute (2) S/P total hip arthroplasty Current Visit: Yes Status: Acute Hospital Course: This is a 71-year-old female with known history of degenerative arthritis of the left hip. The patient presents for evaluation. After discussion and consideration patient elects to proceed with total hip arthroplasty. The patient is seen preoperatively by Dr. Reese and medically cleared for surgery by their primary care physician. Patient is admitted to [facility] on 08/15/2017 for total hip arthroplasty. The procedures performed without complication or sequelae. The patient is doing well postoperatively. Labs and vital signs are stable on day of discharge. On day of discharge patient's hip incision is healing well. There is minimal erythema. There is no drainage noted at this time. There is minimal soft tissue swelling to the hip and thigh. Patient has full foot and ankle motion without difficulty or pain. Neurovascular status to the left lower extremity is intact. Patient is discharged home in good condition. Please see med rec for accurate list of home medications. Plan - Discharge Summary Discharge Rx Participant: No New Discharge Prescriptions: New Aspirin 325 mg PO BID #60 tab Sennosides [Senokot] 1 tab PO BID #60 tablet traMADol HCl [Ultram] 1 - 2 tab PO Q6H PRN #90 tab PRN Reason: Pain No Action Nitroglycerin Sl Tabs [Nitrostat] 0.4 mg SUBLINGUAL Q5M PRN PRN Reason: Chest Pain Carvedilol [Coreg] 25 mg PO BID Aspirin EC [Ecotrin Low Dose] 81 mg PO DAILY Pravastatin Sodium [Pravachol] 40 mg PO HS Fish Oil/Dha/Epa [Fish Oil 1,200 mg Fish Oil] 1 cap PO BID Polyethylene Glycol 3350 [Miralax] 17 gm PO Q48H ALPRAZolam [Xanax] 0.5 mg PO BID PRN PRN Reason: Anxiety Omeprazole [PriLOSEC] 20 mg PO DAILY traMADol HCl [Ultram] 50 - 100 mg PO Q6H PRN PRN Reason: Pain Discharge Medication List Aspirin EC [Ecotrin Low Dose] 81 mg PO DAILY 09/29/14 [History] Carvedilol [Coreg] 25 mg PO BID 09/29/14 [History] Nitroglycerin Sl Tabs [Nitrostat] 0.4 mg SUBLINGUAL Q5M PRN 09/29/14 [History] ALPRAZolam [Xanax] 0.5 mg PO BID PRN 09/19/16 [History] Fish Oil/Dha/Epa [Fish Oil 1,200 mg Fish Oil] 1 cap PO BID 09/19/16 [History] Polyethylene Glycol 3350 [Miralax] 17 gm PO Q48H 09/19/16 [History] Pravastatin Sodium [Pravachol] 40 mg PO HS 09/19/16 [History] Omeprazole [PriLOSEC] 20 mg PO DAILY 08/07/17 [History] traMADol HCl [Ultram] 50 - 100 mg PO Q6H PRN 08/07/17 [History] Aspirin 325 mg PO BID #60 tab 08/16/17 [Rx] Sennosides [Senokot] 1 tab PO BID #60 tablet 08/16/17 [Rx] traMADol HCl [Ultram] 1 - 2 tab PO Q6H PRN #90 tab 08/16/17 [Rx] Follow up Appointment(s)/Referral(s): Moo Reese DO [Doctor of Osteopathic Medicine] - 2 Weeks Activity/Diet/Wound Care/Special Instructions: Weightbearing as tolerated with walker Leave dressing intact. Dressing may be removed by home care nurse in 10 days. May shower with dressing on. Follow-up with [facility] in 2 weeks, please call with any questions or concerns [phone] Discharge Disposition: HOME WITH HOME HEALTH SERVICES
[2017-08-16] MEDS ORDERED: MELOXICAM 7.5 MG TAB PO SCH (09:00)
[2017-08-16] MEDS ORDERED: ASPIRIN 81 MG PO SCH (09:00)
--- NOTE | 2017-08-16 11:33 | P.PN ---
Subjective No overnight events patient is clinically doing well and is being discharged today. Objective - Vital Signs Vital signs: Vital Signs Temp 97.4 F L 08/16/17 06:50 Pulse 73 08/16/17 06:50 Resp 16 08/16/17 01:00 BP 145/81 08/16/17 06:50 Pulse Ox 93 L 08/16/17 06:50 Intake & Output 08/15/17 08/16/17 08/16/17 18:59 06:59 18:59 Intake Total 1301 1780 240 Output Total 400 Balance 901 1780 240 Weight 81.647 kg Intake: IV 1201 Intake, IV Titration 780 Amount Sodium Chloride 0.9% 1, 780 000 ml @ 65 mls/hr IV . [id number] ROCKY Rx#:[id number] Oral 100 1000 240 Output: Estimated Blood Loss 400 Other: # Voids 2 - Exam PHYSICAL EXAMINATION: GENERAL: The patient is alert and oriented x3, not in any acute distress. Well developed, well nourished. HEENT: Pupils are round and equally reacting to light. EOMI. No scleral icterus. No conjunctival pallor. Normocephalic, atraumatic. No pharyngeal erythema. No thyromegaly. CARDIOVASCULAR: S1 and S2 present. No murmurs, rubs, or gallops. PULMONARY: Chest is clear to auscultation, no wheezing or crackles. ABDOMEN: Soft, nontender, nondistended, normoactive bowel sounds. No palpable organomegaly. MUSCULOSKELETAL: Deferred to orthotics surgery EXTREMITIES: No cyanosis, clubbing, or pedal edema. NEUROLOGICAL: Gross neurological examination did not reveal any focal deficits. SKIN: No rashes. - Labs CBC & Chem 7: 08/16/17 06:47 Labs: Abnormal Lab Results - Last 24 Hours (Table) 08/16/17 Range/Units 06:47 WBC 15.5 H (3.8-10.6) k/uL Neutrophils # 12.7 H (1.3-7.7) k/uL Monocytes # 1.3 H (0-1.0) k/uL Assessment and Plan Plan: -Coronary artery disease: Patient will be resumed on beta blockers and antiplatelet therapy. -Hypertension patient blood pressure is bit elevated because of her pain we'll treat the pain. Resume her antidepressant medications -Gastroesophageal reflux disease -Hyperlipidemia -Rheumatoid arthritis -Left hip arthroplasty pain management and DVT prophylaxis as per primary service. No further recommendations from medicine perspective patient can be discharged from medicine perspective
== END 2017-08-16 11:43 | disposition home health service (06) | DRG 470 ==
LOC: 2ORMAIN 07:30 → 3SUR 11:49
PROVIDERS: ADMIT Orthopaedic Surgery; ATTEND Orthopaedic Surgery
PROC: 0SRB06A Replacement of Left Hip Joint with Oxidized Zirconium on Polyethylene Synthetic Substitute, Uncemented, Open Approach (ICD-10-PCS; principal; 2017-08-15 09:15)
DX: M16.12 Unilateral primary osteoarthritis, left hip (principal); E78.5 Hyperlipidemia, unspecified; I10 Essential (primary) hypertension; I25.10 Atherosclerotic heart disease of native coronary artery without angina pectoris; I25.2 Old myocardial infarction; K21.9 Gastro-esophageal reflux disease without esophagitis; M06.9 Rheumatoid arthritis, unspecified; Z85.71 Personal history of Hodgkin lymphoma; Z87.891 Personal history of nicotine dependence; Z95.1 Presence of aortocoronary bypass graft; Z79.82 Long term (current) use of aspirin; Z79.899 Other long term (current) drug therapy; Z88.5 Allergy status to narcotic agent; Z88.2 Allergy status to sulfonamides; Z88.8 Allergy status to other drugs, medicaments and biological substances; Z96.652 Presence of left artificial knee joint
CPT/HCPCS: 73501; 85025; 86850; 86891; 86900; 86901; 88300